=== PATIENT | female | born 1970 | race Two or more races ===

== ENCOUNTER → 2016-04-10 | Outpatient (CLI) | payer OTHER ==
--- NOTE | 2016-04-10 14:07 | MA ---
Bilateral Digital Screening Mammograms With iCAD Clinical Indications: Routine screening mammograms. Technique: Digital cephalocaudal and mediolateral oblique projections were obtained. This examinati on was processed by the iCAD computer-aided detection system. Comparison: 2015, 2013, 2012. Breast density: 3: 50 to 75%. Findings: CAD was reviewed. In the left breast MLO projection, there is possible developing apprentice architect ural distortion, new since the previous studies. Right breast demonstrates no new dominant densities or architectural distortion. No suspicious microcalcifications in either breast. Impression: 1. BI-RADS 0: Needs additional imaging evaluation. 2. Possible architectural distortion on the MLO view of the left breast. Recommendation: Additional diagnostic mammographic views left breast.
== END ==
LOC: BMCIMAGING 10:02
DX: Z12.31 Encounter for screening mammogram for malignant neoplasm of breast (principal)
CPT/HCPCS: G0202

== ENCOUNTER → 2016-04-15 | Outpatient (CLI) | payer OTHER ==
--- NOTE | 2016-04-15 09:39 | MA ---
Diagnostic Digital Mammogram Left Breast With iCAD Analysis Reason for examination: Evaluate possible developing architectural change noted in the central left b reast on the oblique view from the screening study April 10, 2016. Technique: Large and small-paddle oblique spot compression views are obtained. Also, a true lateral i s performed. The examination is processed by the iCAD computer-aided detection system. Comparison to older studies dating back to March 2013. Findings: The abnormality does not persist on diagnostic evaluation and it was probably related to cool perimposition of normal glandular elements on the screening study. The appearance of the left breast on diagnostic assessment is unchanged compared to the older studies. Impression: Negative diagnostic mammography. BI-RADS: 1. Recommendation: Resume routine mammographic screening in one year as long as physical examination is negative. A verbal report was given to the patient. [facility] with send a result letter.
== END ==
LOC: FIMAGING 08:51
PROVIDERS: ATTEND Family Medicine
DX: R92.8 Other abnormal and inconclusive findings on diagnostic imaging of breast (principal)
CPT/HCPCS: G0206

== ENCOUNTER → 2016-07-18 | Outpatient (CLI) | payer OTHER | LOC: BMCIMAGING 11:37 | PROVIDERS: ATTEND Internal Medicine Endocrinology, Diabetes & Metabolism | DX: E04.1 Nontoxic single thyroid nodule (principal) | CPT/HCPCS: 76536-PO ==

== ENCOUNTER → 2017-04-10 | Outpatient (CLI) | payer OTHER | LOC: FIMAGING 12:02 | PROVIDERS: ATTEND Family Medicine | DX: Z12.31 Encounter for screening mammogram for malignant neoplasm of breast (principal) ==

== ENCOUNTER → 2018-04-15 | Outpatient (CLI) | payer OTHER | LOC: FIMAGING 11:38 | PROVIDERS: ATTEND Family Medicine | DX: Z12.31 Encounter for screening mammogram for malignant neoplasm of breast (principal) ==